=== PATIENT | female | born 1975 | race Asian ===

== ENCOUNTER 2020-01-10 15:00 | Emergency (ER) | payer OTHER ==
[~2020-01-10] VITALS: Ht 152.4 cm; Wt 89.0 kg
[2020-01-10 15:05] VITALS: BP 142/94
--- NOTE | 2020-01-10 16:55 | NUR ---
IMMOBILIZER APPLIED. CRUTCH USE INSTRUCTIONS GIVEN
--- NOTE | 2020-01-10 17:33 | NUR ---
Patient/Caregiver given discharge instructions and they have confirmed that they understand the instructions. Patient ambulatory with steady gait.
== END 2020-01-10 17:35 | disposition home or self-care (01) ==
LOC: ED 17:15
DX: M25.562 Pain in left knee (principal); I10 Essential (primary) hypertension
CPT/HCPCS: 29505; 99283